=== PATIENT | female | born 1940 | race African-American/Black ===

== ENCOUNTER 2018-04-11 09:30 | Emergency (ER) | payer MEDICARE, MEDICAID ==
[~2018-04-11] VITALS: Ht 167.6 cm; Wt 70.0 kg
[~2018-04-11 09:30] MED LIST: HYDR-4135 PO; LABE200T28 PO; LIP40 PO; NIFE90TA34 PO
[2018-04-11] MEDS ORDERED: MAGNESIUM CITRATE 300ML SOLUTION PO ONE (10:45)
[2018-04-11] MEDS ORDERED: NA PHOS,M-B/NA PHOS,DI-BA ENEMA 118ML PR ONE (10:45)
[2018-04-11 10:50] LABS: EOSINOPHILS % 0.2 % (0.0-5.0); HEMATOCRIT. 37.5 % (36.0-48.0); LYMPHOCYTES % 13.5 % (20.0-50.0); MEAN CORPUSCULAR HEMOGLOBIN 24.6 pg (28.0-32.0); MEAN PLATELET VOLUME 7.4 fl (7.4-10.4); MONOCYTES % 5.2 % (2.0-8.0); NEUTROPHILS % 80.1 % (40.0-76.0); PLATELET 326 x1000/uL (130-400); RED BLOOD CELL COUNT 4.87 mill/uL (4.2-5.4); RED CELL DISTRIBUTION WIDTH 18.9 % (11.6-14.6)
[2018-04-11 10:54] LABS: CHLORIDE 105 mEq/L (98-107)
[2018-04-11 10:57] LABS: PROTHROMBIN TIME 10.5 sec (9.1-11.1)
[2018-04-11] MEDS ORDERED: LACTULOSE 20G/30ML UDC PO ONE (13:15)
[2018-04-12] MEDS ORDERED: CLONIDINE 0.2MG TABLET PO SCH (01:30)
[2018-04-12] MEDS ORDERED: CLONIDINE 0.2MG TABLET PO PRN (01:30)
[2018-04-12 10:42] VITALS: BP 202/76
== END 2018-04-12 10:52 | disposition left against medical advice (07) ==
LOC: ER 09:46 → EDBEDREQ 14:12 → EDBEDREQTM 14:12 → ER 04-12 10:52 → CANBEDREQ 04-12 16:05
DX: K56.41 Fecal impaction (principal); I12.0 Hypertensive chronic kidney disease with stage 5 chronic kidney disease or end stage renal disease; N18.6 End stage renal disease; Z99.2 Dependence on renal dialysis
CPT/HCPCS: 36415; 93005; 99284

== ENCOUNTER 2018-09-03 11:44 | Inpatient (IN) | payer MEDICARE, MEDICAID ==
[~2018-09-03] VITALS: Ht 170.2 cm; Wt 84.8 kg
[2018-09-03 14:05] LABS: BASOPHILS % 0.7 % (0.0-2.0); EOSINOPHILS % 1.2 % (0.0-5.0); HEMATOCRIT. 37.6 % (36.0-48.0); HEMOGLOBIN. 12.2 g/dL (12.0-16.0); LYMPHOCYTES % 33.3 % (20.0-50.0); MEAN CORPUSCULAR HEMOGLOBIN 25.8 pg (28.0-32.0); MEAN CORPUSCULAR VOLUME 79.8 fL (81.0-99.0); MEAN PLATELET VOLUME 7.9 fl (7.4-10.4); MONOCYTES % 6.6 % (2.0-8.0); NEUTROPHILS % 58.2 % (40.0-76.0); PLATELET 291 x1000/uL (130-400); RED BLOOD CELL COUNT 4.71 mill/uL (4.2-5.4); RED CELL DISTRIBUTION WIDTH 16.4 % (11.6-14.6)
[2018-09-03 14:10] LABS: CHLORIDE 96 mEq/L (98-107)
[2018-09-03 14:12] LABS: PROTHROMBIN TIME 10.2 sec (9.6-11.0)
[2018-09-03] MEDS ORDERED: ACETAMINOPHEN 325MG TABLET PO PRN (18:00)
[2018-09-03] MEDS ORDERED: ZOLPIDEM TARTRATE 5MG TABLET PO PRN (18:00)
[2018-09-03] MEDS ORDERED: ONDANSETRON HCL 4MG/2ML INJ IV PRN (18:00)
[2018-09-03 18:02] LABS: CLARITY URINE TURBID (CLEAR); COLOR URINE YELLOW (YELLOW); KETONES URINE TRACE (NEGATIVE); LEUKOCYTE ESTERASE URINE 3+ (NEGATIVE); NITRITE URINE NEGATIVE (NEGATIVE); OCCULT BLOOD URINE TRACE (NEGATIVE); PH URINE 8.5 (4.5-8.0); PROTEIN URINE 3+ (NEGATIVE); SPECIFIC GRAVITY URINE 1.017 (1.005-1.030)
[2018-09-03 20:00] VITALS: BP 139/76
[2018-09-03] MEDS ORDERED: ENOXAPARIN 30MG/0.3ML SYR SUBCUT SCH (21:00)
[2018-09-04] VITALS: BP 131/57
[2018-09-04 04:00] VITALS: BP 141/53
[2018-09-04 08:00] VITALS: BP 170/90
[2018-09-04 08:56] LABS: BASOPHILS % 0.8 % (0.0-2.0); EOSINOPHILS % 1.9 % (0.0-5.0); HEMATOCRIT. 33.9 % (36.0-48.0); HEMOGLOBIN. 10.9 g/dL (12.0-16.0); LYMPHOCYTES % 40.1 % (20.0-50.0); MEAN CORPUSCULAR HEMOGLOBIN 25.8 pg (28.0-32.0); MEAN CORPUSCULAR VOLUME 80.3 fL (81.0-99.0); MEAN PLATELET VOLUME 8.5 fl (7.4-10.4); MONOCYTES % 7.2 % (2.0-8.0); PLATELET 269 x1000/uL (130-400); RED BLOOD CELL COUNT 4.23 mill/uL (4.2-5.4); RED CELL DISTRIBUTION WIDTH 16.2 % (11.6-14.6)
[2018-09-04] MEDS ORDERED: FOLIC ACID/VITAMIN B COMP W-C TABLET PO SCH (09:00)
[2018-09-04 09:32] LABS: CHLORIDE 98 mEq/L (98-107)
[2018-09-04 09:43] LABS: PHOSPHORUS 5.8 mg/dL (2.5-4.9)
[2018-09-04] MEDS ORDERED: CEFTRIAXONE 1 G PREMIX 50 ML IV SCH (11:00)
[2018-09-04 12:00] VITALS: BP 139/75
[2018-09-04] MEDS ORDERED: MECLIZINE 25MG TABLET PO PRN (14:30)
[2018-09-04 19:34] VITALS: BP 210/96
== END 2018-09-04 20:50 | disposition home or self-care (01) | DRG 73 ==
LOC: ER 11:44 → 8WST 16:10 → EDBEDREQ 16:15 → ENRESERV 17:23
PROVIDERS: ADMIT Internal Medicine; ATTEND Internal Medicine
PROC: 5A1D70Z Performance of Urinary Filtration, Intermittent, Less than 6 Hours Per Day (ICD-10-PCS; principal; 2018-09-04)
DX: G90.8 Other disorders of autonomic nervous system (principal); N18.6 End stage renal disease; I12.0 Hypertensive chronic kidney disease with stage 5 chronic kidney disease or end stage renal disease; E87.1 Hypo-osmolality and hyponatremia; N39.0 Urinary tract infection, site not specified; B19.20 Unspecified viral hepatitis C without hepatic coma; B96.89 Other specified bacterial agents as the cause of diseases classified elsewhere; E21.3 Hyperparathyroidism, unspecified; G89.29 Other chronic pain; M54.5 Low back pain; D63.8 Anemia in other chronic diseases classified elsewhere; Z60.2 Problems related to living alone; E87.8 Other disorders of electrolyte and fluid balance, not elsewhere classified; J44.9 Chronic obstructive pulmonary disease, unspecified; Z79.899 Other long term (current) drug therapy; Z99.2 Dependence on renal dialysis; Z82.49 Family history of ischemic heart disease and other diseases of the circulatory system; Z87.891 Personal history of nicotine dependence; Z90.710 Acquired absence of both cervix and uterus
CPT/HCPCS: 36415; 71045; 84100; 84484; 87077; 87186; 93005; 96372; 99285; J0696; J1650

== ENCOUNTER 2018-11-10 18:50 | Inpatient (IN) | payer MEDICARE, MEDICAID ==
[~2018-11-10] VITALS: Ht 170.2 cm; Wt 63.5 kg
[~2018-11-10 18:50] MED LIST changes: -NIFE90TA34 PO
[2018-11-10 19:54] LABS: CHLORIDE 99 mEq/L (98-107)
[2018-11-10 19:55] LABS: BASOPHILS % 0.9 % (0.0-2.0); EOSINOPHILS % 2.4 % (0.0-5.0); HEMATOCRIT. 38.2 % (36.0-48.0); HEMOGLOBIN. 12.2 g/dL (12.0-16.0); LYMPHOCYTES % 35.6 % (20.0-50.0); MEAN CORPUSCULAR HEMOGLOBIN 26.1 pg (28.0-32.0); MEAN CORPUSCULAR VOLUME 81.4 fL (81.0-99.0); NEUTROPHILS % 52.1 % (40.0-76.0); PLATELET 233 x1000/uL (130-400); RED BLOOD CELL COUNT 4.69 mill/uL (4.2-5.4); RED CELL DISTRIBUTION WIDTH 15.8 % (11.6-14.6)
[2018-11-10 19:57] LABS: PROTHROMBIN TIME 10.6 sec (9.6-11.0)
[2018-11-10] MEDS ORDERED: POTASSIUM CHLORIDE 20MEQ TABLET SR PO ONE (21:00)
[2018-11-10 22:40] VITALS: BP 159/71
[2018-11-11] MEDS ORDERED: ACETAMINOPHEN 325MG TABLET PO PRN (00:15)
[2018-11-11] MEDS ORDERED: ONDANSETRON HCL 4MG/2ML INJ IV PRN (00:15)
[2018-11-11 01:48] LABS: CREATINE KINASE 55 IU/L (26-192)
[2018-11-11 01:50] LABS: CREATINE KINASE MB FRACTION < 1.0 ng/mL (0.5-3.6)
[2018-11-11 04:00] VITALS: BP_SYST 144; BP_SYST 151; BP_DIAS 60; BP_DIAS 73
[2018-11-11 08:00] VITALS: BP 139/79
[2018-11-11] MEDS: LABETALOL HCL 200MG TABLET PO SCH ×2 (08:58→21:00)
[2018-11-11] MEDS: ASPIRIN 81MG TABLET PO SCH (08:58)
[2018-11-11] MEDS ORDERED: HYDRALAZINE HCL 25MG TABLET PO SCH (09:00)
[2018-11-11 09:37] LABS: BASOPHILS % 0.5 % (0.0-2.0); HEMATOCRIT. 37.4 % (36.0-48.0); HEMOGLOBIN. 11.9 g/dL (12.0-16.0); LYMPHOCYTES % 35.6 % (20.0-50.0); MEAN CORPUSCULAR HEMOGLOBIN 25.7 pg (28.0-32.0); MEAN CORPUSCULAR VOLUME 81.2 fL (81.0-99.0); MEAN PLATELET VOLUME 8.3 fl (7.4-10.4); MONOCYTES % 7.6 % (2.0-8.0); NEUTROPHILS % 54.3 % (40.0-76.0); PLATELET 257 x1000/uL (130-400); RED BLOOD CELL COUNT 4.61 mill/uL (4.2-5.4); RED CELL DISTRIBUTION WIDTH 15.8 % (11.6-14.6)
[2018-11-11] MEDS: HEPARIN 5000 UNITS/ML VIAL SUBCUT SCH ×2 (09:41→21:44)
[2018-11-11 09:57] LABS: CHLORIDE 100 mEq/L (98-107)
[2018-11-11 10:07] LABS: LDL CHOLESTEROL 135 mg/dL (5-100)
[2018-11-11 10:08] LABS: CREATINE KINASE 53 IU/L (26-192)
[2018-11-11 10:09] LABS: HDL CHOLESTEROL 59 mg/dL (40-59)
[2018-11-11 10:10] LABS: CREATINE KINASE MB FRACTION < 1.0 ng/mL (0.5-3.6)
[2018-11-11] MEDS ORDERED: POTASSIUM CHLORIDE 20MEQ TABLET SR PO SCH (11:00)
[2018-11-11 12:00] VITALS: BP_SYST 147; BP_SYST 153; BP_DIAS 59; BP_DIAS 79
[2018-11-11 16:00] VITALS: BP 189/72
[2018-11-11 16:48] LABS: CREATINE KINASE 53 IU/L (26-192)
[2018-11-11 16:49] LABS: CREATINE KINASE MB FRACTION < 1.0 ng/mL (0.5-3.6)
[2018-11-11] MEDS: METHYLPREDNISOLONE SOD SUCC 40 MG/ML VIAL IV SCH ×2 (17:30→21:44)
[2018-11-11] MEDS: CLONIDINE 0.1MG TABLET PO PRN (17:32)
[2018-11-11] MEDS: PIPERACILLIN/TAZOBACTAM 2.25 G in DEXTROSE 5% WATER 50 ML IV SCH (18:42)
[2018-11-11] MEDS ORDERED: LORAZEPAM 2MG/ML CPJ IV PRN (19:00)
[2018-11-11] MEDS ORDERED: MECLIZINE 12.5MG TABLET PO PRN (19:00)
[2018-11-11] MEDS ORDERED: HYDROCODONE/ACETAMINOPHEN 5/325MG TABLET PO PRN (19:00)
[2018-11-11] MEDS ORDERED: DIPHENHYDRAMINE 50MG/ML VIAL IV PRN (19:00)
[2018-11-11 20:00] VITALS: BP_SYST 149; BP_SYST 159; BP_DIAS 71; BP_DIAS 85
[2018-11-11] MEDS: HYDRALAZINE HCL 25MG TABLET PO SCH (20:00)
[2018-11-11] MEDS: IPRATROPIUM/ALBUTEROL 0.5-3(2.5)MG/3ML NEB HHN SCH (20:58)
[2018-11-11] MEDS ORDERED: ATORVASTATIN CALCIUM 40MG TABLET PO SCH (21:00)
[2018-11-11] MEDS ORDERED: LACTULOSE 20G/30ML UDC PO PRN (21:00)
[2018-11-12] VITALS (7 sets, daily range): BP systolic 150–181; BP diastolic 63–96
[2018-11-12] MEDS: PIPERACILLIN/TAZOBACTAM 2.25 G in DEXTROSE 5% WATER 50 ML IV SCH ×2 (02:11→09:47)
[2018-11-12] MEDS: IPRATROPIUM/ALBUTEROL 0.5-3(2.5)MG/3ML NEB HHN SCH ×3 (02:15→14:36)
[2018-11-12] MEDS ORDERED: HEPARIN SODIUM 1,000 UNIT/1ML VIAL IV NR (03:15)
[2018-11-12] MEDS ORDERED: HEPARIN SODIUM 1,000 UNIT/1ML VIAL IV ONE (03:15)
[2018-11-12] MEDS: HYDRALAZINE HCL 25MG TABLET PO SCH ×2 (04:18→12:42)
[2018-11-12] MEDS: METHYLPREDNISOLONE SOD SUCC 40 MG/ML VIAL IV SCH ×2 (06:14→14:17)
[2018-11-12] MEDS: LABETALOL HCL 200MG TABLET PO SCH (09:47)
[2018-11-12] MEDS: ASPIRIN 81MG TABLET PO SCH (09:47)
[2018-11-12] MEDS: HEPARIN 5000 UNITS/ML VIAL SUBCUT SCH (09:48)
[2018-11-12 14:44] LABS: HEMATOCRIT. 37.9 % (36.0-48.0); HEMOGLOBIN. 12.2 g/dL (12.0-16.0); LYMPHOCYTES % 16.7 % (20.0-50.0); MEAN CORPUSCULAR HEMOGLOBIN 26.1 pg (28.0-32.0); MEAN PLATELET VOLUME 8.4 fl (7.4-10.4); MONOCYTES % 5.3 % (2.0-8.0); PLATELET 287 x1000/uL (130-400); RED BLOOD CELL COUNT 4.67 mill/uL (4.2-5.4); RED CELL DISTRIBUTION WIDTH 16.2 % (11.6-14.6)
[2018-11-12] MEDS: CLONIDINE 0.1MG TABLET PO PRN (16:20)
== END 2018-11-12 18:18 | disposition home or self-care (01) | DRG 291 ==
LOC: ER 18:50 → 7WST 21:33 → EDBEDREQ 21:35 → EDBEDREQTM 21:35 → ENRESERV 22:01 → EDBEDREQ 22:39
PROVIDERS: ADMIT Internal Medicine; ATTEND Internal Medicine
PROC: 5A1D70Z Performance of Urinary Filtration, Intermittent, Less than 6 Hours Per Day (ICD-10-PCS; principal; 2018-11-11)
DX: I13.2 Hypertensive heart and chronic kidney disease with heart failure and with stage 5 chronic kidney disease, or end stage renal disease (principal); I50.33 Acute on chronic diastolic (congestive) heart failure; N18.6 End stage renal disease; J44.1 Chronic obstructive pulmonary disease with (acute) exacerbation; E87.1 Hypo-osmolality and hyponatremia; J44.0 Chronic obstructive pulmonary disease with (acute) lower respiratory infection; J20.9 Acute bronchitis, unspecified; B19.20 Unspecified viral hepatitis C without hepatic coma; E78.5 Hyperlipidemia, unspecified; E87.6 Hypokalemia; R55 Syncope and collapse; Z79.899 Other long term (current) drug therapy; Z86.73 Personal history of transient ischemic attack (TIA), and cerebral infarction without residual deficits; Z90.710 Acquired absence of both cervix and uterus; Z99.2 Dependence on renal dialysis
CPT/HCPCS: 36415; 71045; 80048; 80061; 82550; 82553; 84443; 84484; 87804; 93005; 93306; 94640; 99285; J1644; J2543; J2920; J7060; J7620

== ENCOUNTER 2019-01-13 10:43 | Emergency (ER) | payer OTHER, MEDICAID ==
[~2019-01-13] VITALS: Ht 170.2 cm; Wt 73.0 kg
[2019-01-13] MEDS ORDERED: SODIUM CHLORIDE 0.9% 1,000 ML IV ONE (11:07)
[2019-01-13] MEDS ORDERED: KETOROLAC 30MG/ML VIAL IV STA (11:07)
[2019-01-13] MEDS ORDERED: METOCLOPRAMIDE HCL 10MG/2ML VIAL IV ONE (11:15)
[2019-01-13] MEDS ORDERED: ACETAMINOPHEN WITH CODEINE 300/30MG TABLET PO ONE (12:45)
[2019-01-13 15:00] VITALS: BP 153/86
== END 2019-01-13 15:08 | disposition home or self-care (01) ==
LOC: ER 10:43
DX: R51 Headache (principal); J44.9 Chronic obstructive pulmonary disease, unspecified; I10 Essential (primary) hypertension; N28.9 Disorder of kidney and ureter, unspecified; Z99.2 Dependence on renal dialysis; Z90.710 Acquired absence of both cervix and uterus; Z79.899 Other long term (current) drug therapy
CPT/HCPCS: 70450; 96374; 96375; 99284; J1885; J2765; J7030

== ENCOUNTER 2020-06-05 12:22 | Inpatient (IN) | payer OTHER, MEDICAID ==
[~2020-06-05] VITALS: Ht 160 cm; Wt 60.3 kg
[~2020-06-05 12:22] MED LIST changes: -LABE200T28 PO; +LABE200T9 PO
[2020-06-05] MEDS ORDERED: ONDANSETRON HCL 4MG/2ML INJ IV ONE (12:45)
[2020-06-05 13:03] LABS: BASOPHILS % 0.6 % (0.0-2.0); EOSINOPHILS % 1.5 % (0.0-5.0); HEMATOCRIT. 31.2 % (36.0-48.0); HEMOGLOBIN. 10.1 g/dL (12.0-16.0); LYMPHOCYTES % 27.4 % (20.0-50.0); MEAN CORPUSCULAR HEMOGLOBIN 24.8 pg (28.0-32.0); MEAN CORPUSCULAR VOLUME 76.9 fL (81.0-99.0); MEAN PLATELET VOLUME 8.4 fl (7.4-10.4); MONOCYTES % 8.9 % (2.0-8.0); NEUTROPHILS % 61.6 % (40.0-76.0); PLATELET 224 x1000/uL (130-400); RED BLOOD CELL COUNT 4.06 mill/uL (4.2-5.4); RED CELL DISTRIBUTION WIDTH 18.2 % (11.6-14.6)
[2020-06-05 13:11] LABS: CHLORIDE 102 mEq/L (98-107)
[2020-06-05 13:15] LABS: ETHANOL BLOOD < 10 mg/dL
[2020-06-05] MEDS ORDERED: TRAMADOL 50MG TABLET PO PRN (14:30)
[2020-06-05] MEDS ORDERED: ENOXAPARIN 40MG/0.4ML SYR SUBCUT SCH (14:30)
[2020-06-05] MEDS ORDERED: ACETAMINOPHEN 325MG TABLET PO PRN (14:30)
[2020-06-05] MEDS ORDERED: MAGNESIUM/ALUMINUM HYDROXIDE/SIMETHICONE 30ML UDC PO PRN (14:30)
[2020-06-05] MEDS ORDERED: IPRATROPIUM/ALBUTEROL 0.5-3(2.5)MG/3ML NEB NEB PRN (14:30)
[2020-06-05] MEDS ORDERED: NITROGLYCERIN 0.4MG TABLET SL SL PRN (14:30)
[2020-06-05] MEDS ORDERED: DOCUSATE SODIUM 100MG CAPSULE PO PRN (14:30)
[2020-06-05] MEDS ORDERED: GUAIFENESIN 200MG/10ML SUGAR FREE UDC PO PRN (14:30)
[2020-06-05 15:19] LABS: T4 FREE 1.21 ng/dL (0.76-1.46)
[2020-06-05] MEDS: ENOXAPARIN 30MG/0.3ML SYR SUBCUT SCH (15:25)
[2020-06-05] MEDS: CLONIDINE 0.1MG TABLET PO PRN (15:25)
[2020-06-05 15:37] LABS: FOLIC ACID (FOLATE) SERUM 4.6 ng/mL (>5.38)
[2020-06-05] MEDS: SEVELAMER CARBONATE 800 MG TABLET PO SCH (17:00)
[2020-06-05] MEDS ORDERED: ZOLPIDEM TARTRATE 5MG TABLET PO PRN (21:00)
[2020-06-05] MEDS: HYDRALAZINE HCL 50MG TABLET PO SCH (22:27)
[2020-06-05] MEDS: FAMOTIDINE 20MG TABLET PO SCH (22:28)
[2020-06-05] MEDS: ASCORBIC ACID 500 MG TABLET PO SCH (22:28)
[2020-06-05] MEDS: METOPROLOL TARTRATE 25MG TABLET PO SCH (22:28)
[2020-06-05 23:00] VITALS: BP 145/54
[2020-06-06] VITALS (7 sets, daily range): BP systolic 142–203; BP diastolic 60–98
[2020-06-06 00:08] LABS: CREATINE KINASE 46 IU/L (26-192)
[2020-06-06 00:10] LABS: CREATINE KINASE MB FRACTION < 1.0 ng/mL (0.5-3.6)
[2020-06-06] MEDS: HYDRALAZINE HCL 50MG TABLET PO SCH ×3 (05:35→21:31)
[2020-06-06 07:02] LABS: BASOPHILS % 0.5 % (0.0-2.0); EOSINOPHILS % 1.7 % (0.0-5.0); HEMATOCRIT. 29.8 % (36.0-48.0); HEMOGLOBIN. 9.7 g/dL (12.0-16.0); LYMPHOCYTES % 35.7 % (20.0-50.0); MEAN CORPUSCULAR HEMOGLOBIN 25.1 pg (28.0-32.0); MEAN CORPUSCULAR VOLUME 77.1 fL (81.0-99.0); MEAN PLATELET VOLUME 9.3 fl (7.4-10.4); MONOCYTES % 7.9 % (2.0-8.0); NEUTROPHILS % 54.2 % (40.0-76.0); PLATELET 221 x1000/uL (130-400); RED BLOOD CELL COUNT 3.86 mill/uL (4.2-5.4)
[2020-06-06 07:15] LABS: CHLORIDE 103 mEq/L (98-107)
[2020-06-06 07:36] LABS: CREATINE KINASE 42 IU/L (26-192); PHOSPHORUS 2.8 mg/dL (2.5-4.9)
[2020-06-06 07:40] LABS: CREATINE KINASE MB FRACTION < 1.0 ng/mL (0.5-3.6)
[2020-06-06] MEDS: SEVELAMER CARBONATE 800 MG TABLET PO SCH ×3 (09:08→18:23)
[2020-06-06] MEDS: ASPIRIN 325MG EC TABLET PO SCH (09:08)
[2020-06-06] MEDS: ASCORBIC ACID 500 MG TABLET PO SCH ×2 (09:08→21:30)
[2020-06-06] MEDS: CHOLECALCIFEROL (D3) 1000 UNIT TABLET PO SCH (09:08)
[2020-06-06] MEDS: METOPROLOL TARTRATE 25MG TABLET PO SCH ×2 (09:09→21:31)
[2020-06-06] MEDS: ZINC SULFATE 220 MG ( 50 ) CAPSULE PO SCH (09:09)
[2020-06-06] MEDS: ENOXAPARIN 30MG/0.3ML SYR SUBCUT SCH (15:50)
[2020-06-06] MEDS: CLONIDINE 0.1MG TABLET PO PRN (15:52)
[2020-06-06] MEDS: ONDANSETRON HCL 4MG/2ML INJ IV PRN (21:31)
[2020-06-06] MEDS: FAMOTIDINE 20MG TABLET PO SCH (21:31)
[2020-06-07] VITALS: BP 167/75
[2020-06-07 04:00] VITALS: BP 148/124
[2020-06-07] MEDS: HYDRALAZINE HCL 50MG TABLET PO SCH ×3 (05:52→21:00)
[2020-06-07 08:00] VITALS: BP 132/28
[2020-06-07] MEDS: METOPROLOL TARTRATE 25MG TABLET PO SCH ×3 (09:00→20:31)
[2020-06-07] MEDS: ASCORBIC ACID 500 MG TABLET PO SCH ×2 (09:14→20:31)
[2020-06-07] MEDS: ASPIRIN 325MG EC TABLET PO SCH (09:14)
[2020-06-07] MEDS: ACETAMINOPHEN 325MG TABLET PO PRN ×3 (09:15→20:31)
[2020-06-07] MEDS: SEVELAMER CARBONATE 800 MG TABLET PO SCH ×3 (09:15→17:28)
[2020-06-07] MEDS: CHOLECALCIFEROL (D3) 1000 UNIT TABLET PO SCH (09:52)
[2020-06-07] MEDS: ZINC SULFATE 220 MG ( 50 ) CAPSULE PO SCH (09:53)
[2020-06-07] MEDS: ONDANSETRON HCL 4MG/2ML INJ IV PRN (09:53)
[2020-06-07] MEDS ORDERED: VANCOMYCIN 1 G PREMIX 200 ML IV SCH (10:00)
[2020-06-07] MEDS: PIPERACILLIN/TAZOBACTAM 2.25 G in DEXTROSE 5% WATER 50 ML IV SCH ×3 (11:29→23:20)
[2020-06-07 12:00] VITALS: BP 157/44
[2020-06-07] MEDS: ENOXAPARIN 30MG/0.3ML SYR SUBCUT SCH (14:59)
[2020-06-07 16:00] VITALS: BP 147/53
[2020-06-07] MEDS: CLONIDINE 0.1MG TABLET PO PRN (17:27)
[2020-06-07 20:00] VITALS: BP 130/55
[2020-06-07] MEDS: FAMOTIDINE 20MG TABLET PO SCH (20:31)
[2020-06-08] VITALS: BP 135/69
[2020-06-08 04:00] VITALS: BP 130/69
[2020-06-08] MEDS: HYDRALAZINE HCL 50MG TABLET PO SCH ×3 (05:11→22:10)
[2020-06-08] MEDS: PIPERACILLIN/TAZOBACTAM 2.25 G in DEXTROSE 5% WATER 50 ML IV SCH ×3 (05:11→18:22)
[2020-06-08 06:23] LABS: PHOSPHORUS 2.7 mg/dL (2.5-4.9)
[2020-06-08 06:29] LABS: BASOPHILS % 0.2 % (0.0-2.0); HEMATOCRIT. 24.6 % (36.0-48.0); LYMPHOCYTES % 14.5 % (20.0-50.0); MEAN CORPUSCULAR VOLUME 76.5 fL (81.0-99.0); MEAN PLATELET VOLUME 9.7 fl (7.4-10.4); MONOCYTES % 6.3 % (2.0-8.0); PLATELET 200 x1000/uL (130-400); RED BLOOD CELL COUNT 3.22 mill/uL (4.2-5.4); RED CELL DISTRIBUTION WIDTH 18.2 % (11.6-14.6)
[2020-06-08 08:00] VITALS: BP 157/70
[2020-06-08] MEDS: SEVELAMER CARBONATE 800 MG TABLET PO SCH ×3 (09:40→18:21)
[2020-06-08] MEDS: METOPROLOL TARTRATE 25MG TABLET PO SCH ×2 (09:40→22:09)
[2020-06-08] MEDS: ASPIRIN 325MG EC TABLET PO SCH (09:40)
[2020-06-08] MEDS: ZINC SULFATE 220 MG ( 50 ) CAPSULE PO SCH (09:40)
[2020-06-08] MEDS: ASCORBIC ACID 500 MG TABLET PO SCH ×2 (09:41→22:10)
[2020-06-08] MEDS: CHOLECALCIFEROL (D3) 1000 UNIT TABLET PO SCH (09:41)
[2020-06-08 12:00] VITALS: BP 187/79
[2020-06-08] MEDS: ENOXAPARIN 30MG/0.3ML SYR SUBCUT SCH (14:14)
[2020-06-08 16:00] VITALS: BP 141/55
[2020-06-08] MEDS ORDERED: VANCOMYCIN 500 MG PREMIX 100 ML IV SCH (18:30)
[2020-06-08 20:00] VITALS: BP 203/73
[2020-06-08] MEDS ORDERED: EPOETIN ALFA-EPBX 10,000 UNIT/ML VIAL SUBCUT NR (21:00)
[2020-06-08] MEDS: FAMOTIDINE 20MG TABLET PO SCH (22:10)
[2020-06-09] VITALS: BP 202/67
[2020-06-09] MEDS: CLONIDINE 0.1MG TABLET PO PRN (00:20)
[2020-06-09] MEDS: PIPERACILLIN/TAZOBACTAM 2.25 G in DEXTROSE 5% WATER 50 ML IV SCH ×4 (01:16→21:11)
[2020-06-09 04:00] VITALS: BP 152/58
[2020-06-09] MEDS: HYDRALAZINE HCL 50MG TABLET PO SCH ×3 (06:36→21:12)
[2020-06-09 06:45] LABS: BASOPHILS % 0.4 % (0.0-2.0); EOSINOPHILS % 1.6 % (0.0-5.0); HEMATOCRIT. 23.9 % (36.0-48.0); LYMPHOCYTES % 23.7 % (20.0-50.0); MEAN CORPUSCULAR HEMOGLOBIN 25.4 pg (28.0-32.0); MEAN CORPUSCULAR VOLUME 76.1 fL (81.0-99.0); MEAN PLATELET VOLUME 9.1 fl (7.4-10.4); MONOCYTES % 6.7 % (2.0-8.0); NEUTROPHILS % 67.6 % (40.0-76.0); PLATELET 201 x1000/uL (130-400); RED BLOOD CELL COUNT 3.14 mill/uL (4.2-5.4); RED CELL DISTRIBUTION WIDTH 17.9 % (11.6-14.6)
[2020-06-09] MEDS: CHOLECALCIFEROL (D3) 1000 UNIT TABLET PO SCH (08:53)
[2020-06-09] MEDS: ASCORBIC ACID 500 MG TABLET PO SCH ×2 (08:53→21:11)
[2020-06-09] MEDS: SEVELAMER CARBONATE 800 MG TABLET PO SCH ×3 (08:53→17:05)
[2020-06-09] MEDS: METOPROLOL TARTRATE 25MG TABLET PO SCH ×2 (08:54→21:13)
[2020-06-09] MEDS: ZINC SULFATE 220 MG ( 50 ) CAPSULE PO SCH (08:54)
[2020-06-09 12:00] VITALS: BP 142/43
[2020-06-09 20:00] VITALS: BP 141/86
[2020-06-09] MEDS: FAMOTIDINE 20MG TABLET PO SCH (21:11)
[2020-06-10] VITALS: BP 145/61
[2020-06-10 04:00] VITALS: BP 155/87
[2020-06-10 05:56] LABS: BASOPHILS % 0.5 % (0.0-2.0); EOSINOPHILS % 2.2 % (0.0-5.0); HEMATOCRIT. 25.5 % (36.0-48.0); LYMPHOCYTES % 27.3 % (20.0-50.0); MEAN CORPUSCULAR HEMOGLOBIN 24.3 pg (28.0-32.0); MEAN PLATELET VOLUME 9.8 fl (7.4-10.4); MONOCYTES % 7.2 % (2.0-8.0); NEUTROPHILS % 62.8 % (40.0-76.0); PLATELET 213 x1000/uL (130-400); RED BLOOD CELL COUNT 3.31 mill/uL (4.2-5.4); RED CELL DISTRIBUTION WIDTH 17.8 % (11.6-14.6)
[2020-06-10] MEDS: PIPERACILLIN/TAZOBACTAM 2.25 G in DEXTROSE 5% WATER 50 ML IV SCH ×2 (06:28→14:19)
[2020-06-10] MEDS: HYDRALAZINE HCL 50MG TABLET PO SCH ×2 (06:29→14:20)
[2020-06-10 08:00] VITALS: BP 137/95
[2020-06-10] MEDS: METOPROLOL TARTRATE 25MG TABLET PO SCH ×2 (09:00→21:33)
[2020-06-10] MEDS: ASCORBIC ACID 500 MG TABLET PO SCH ×2 (09:08→21:32)
[2020-06-10] MEDS: SEVELAMER CARBONATE 800 MG TABLET PO SCH ×3 (09:08→17:16)
[2020-06-10] MEDS: ZINC SULFATE 220 MG ( 50 ) CAPSULE PO SCH (09:08)
[2020-06-10] MEDS: CHOLECALCIFEROL (D3) 1000 UNIT TABLET PO SCH (09:08)
[2020-06-10 12:51] VITALS: BP 201/83
[2020-06-10] MEDS ORDERED: IOHEXOL 350 MG/ML 200ML INFUS..BTL IV ONE (15:22)
[2020-06-10] MEDS: ACETAMINOPHEN 325MG TABLET PO PRN (18:27)
[2020-06-10 18:39] LABS: INR 1.1; PROTHROMBIN TIME 11.4 sec (9.6-11.0)
[2020-06-10 20:00] VITALS: BP 141/82
[2020-06-10] MEDS ORDERED: VANCOMYCIN 500 MG PREMIX 100 ML IV NR (21:00)
[2020-06-10] MEDS: HYDRALAZINE HCL 100MG TABLET PO SCH (21:33)
[2020-06-10] MEDS: FAMOTIDINE 20MG TABLET PO SCH (21:33)
[2020-06-10] MEDS: EPOETIN ALFA-EPBX 10,000 UNIT/ML VIAL SUBCUT SCH (21:35)
[2020-06-11] VITALS (8 sets, daily range): BP systolic 115–194; BP diastolic 68–89
[2020-06-11] MEDS: PIPERACILLIN/TAZOBACTAM 2.25 G in DEXTROSE 5% WATER 50 ML IV SCH ×4 (01:34→22:36)
[2020-06-11] MEDS: NITROGLYCERIN OINT 1GM/INCH UDPKT TD SCH ×4 (01:34→22:02)
[2020-06-11] MEDS: HYDRALAZINE HCL 100MG TABLET PO SCH ×3 (06:38→22:02)
[2020-06-11 07:24] LABS: BASOPHILS % 0.8 % (0.0-2.0); EOSINOPHILS % 2.5 % (0.0-5.0); HEMATOCRIT. 25.7 % (36.0-48.0); HEMOGLOBIN. 8.2 g/dL (12.0-16.0); LYMPHOCYTES % 29.7 % (20.0-50.0); MEAN CORPUSCULAR HEMOGLOBIN 24.3 pg (28.0-32.0); MEAN PLATELET VOLUME 9.8 fl (7.4-10.4); MONOCYTES % 6.7 % (2.0-8.0); NEUTROPHILS % 60.3 % (40.0-76.0); PLATELET 254 x1000/uL (130-400); RED BLOOD CELL COUNT 3.38 mill/uL (4.2-5.4); RED CELL DISTRIBUTION WIDTH 17.6 % (11.6-14.6)
[2020-06-11] MEDS ORDERED: HEPARIN SODIUM 1,000 UNIT/1ML VIAL IV ONE (07:27)
[2020-06-11] MEDS: SEVELAMER CARBONATE 800 MG TABLET PO SCH ×4 (07:40→17:40)
[2020-06-11] MEDS: METOPROLOL TARTRATE 25MG TABLET PO SCH ×3 (09:00→20:43)
[2020-06-11] MEDS: CHOLECALCIFEROL (D3) 1000 UNIT TABLET PO SCH ×2 (09:00→09:37)
[2020-06-11] MEDS: ZINC SULFATE 220 MG ( 50 ) CAPSULE PO SCH ×2 (09:00→09:37)
[2020-06-11] MEDS: ASCORBIC ACID 500 MG TABLET PO SCH ×3 (09:00→20:43)
[2020-06-11] MEDS: HYDRALAZINE 20MG/ML VIAL IV PRN ×2 (10:23→20:42)
[2020-06-11] MEDS: MORPHINE SULFATE 2 MG/ML CPJ (NOT FOR IM USE) IV PRN ×2 (10:32→22:03)
[2020-06-11] MEDS ORDERED: IOHEXOL-300 100 ML BOTTLE ONE (12:26)
[2020-06-11] MEDS ORDERED: LIDOCAINE HCL 1% 20ML VIAL (Pyxis) INJ ONE (12:26)
[2020-06-11] MEDS ORDERED: IODIXANOL 320MG/ML 100 ML BOTTLE IV ONE (12:58)
[2020-06-11] MEDS ORDERED: MIDAZOLAM HCL 2 MG/2 ML VIAL ONE (13:32)
[2020-06-11] MEDS ORDERED: FENTANYL CITRATE/PF 50MCG/ML 2ML VIAL ONE (13:32)
[2020-06-11] MEDS ORDERED: HYDRALAZINE 20MG/ML VIAL ONE (14:48)
[2020-06-11] MEDS ORDERED: PROTAMINE SULFATE 10MG/ML VIAL 5ML IV ONE (15:26)
[2020-06-11] MEDS: FAMOTIDINE 20MG TABLET PO SCH (20:43)
[2020-06-11] MEDS: CLONIDINE 0.1MG TABLET PO PRN (22:39)
[2020-06-12] VITALS (15 sets, daily range): BP systolic 110–229; BP diastolic 56–84
[2020-06-12] MEDS: HYDRALAZINE 20MG/ML VIAL IV PRN ×3 (04:09→20:31)
[2020-06-12] MEDS: HYDRALAZINE HCL 100MG TABLET PO SCH ×3 (05:55→22:00)
[2020-06-12] MEDS: PIPERACILLIN/TAZOBACTAM 2.25 G in DEXTROSE 5% WATER 50 ML IV SCH (05:55)
[2020-06-12] MEDS: NITROGLYCERIN OINT 1GM/INCH UDPKT TD SCH ×4 (05:55→22:00)
[2020-06-12] MEDS: ASCORBIC ACID 500 MG TABLET PO SCH ×2 (08:04→21:00)
[2020-06-12] MEDS: ZINC SULFATE 220 MG ( 50 ) CAPSULE PO SCH (08:04)
[2020-06-12] MEDS: SEVELAMER CARBONATE 800 MG TABLET PO SCH ×3 (08:04→18:28)
[2020-06-12] MEDS: CHOLECALCIFEROL (D3) 1000 UNIT TABLET PO SCH (08:04)
[2020-06-12] MEDS: CLONIDINE 0.1MG TABLET PO PRN ×2 (08:05→20:31)
[2020-06-12] MEDS: METOPROLOL TARTRATE 25MG TABLET PO SCH ×2 (08:05→20:31)
[2020-06-12 08:06] LABS: BASOPHILS % 0.6 % (0.0-2.0); LYMPHOCYTES % 20.7 % (20.0-50.0); MEAN CORPUSCULAR HEMOGLOBIN 24.7 pg (28.0-32.0); MEAN CORPUSCULAR VOLUME 77.1 fL (81.0-99.0); MEAN PLATELET VOLUME 9.4 fl (7.4-10.4); MONOCYTES % 6.7 % (2.0-8.0); PLATELET 239 x1000/uL (130-400); RED CELL DISTRIBUTION WIDTH 17.7 % (11.6-14.6)
[2020-06-12 08:12] LABS: HEMATOCRIT. 21.6 % (36.0-48.0); HEMOGLOBIN. 6.9 g/dL (12.0-16.0)
[2020-06-12] MEDS ORDERED: ENALAPRIL 2.5MG/2ML VIAL 2ML IV PRN (10:00)
[2020-06-12] MEDS ORDERED: HYDRALAZINE 20MG/ML VIAL IV NR (10:00)
[2020-06-12] MEDS ORDERED: GENTAMICIN SULF 40MG/ML 2ML VIAL ONE (11:18)
[2020-06-12] MEDS ORDERED: LIDOCAINE HCL 1% 20ML VIAL (Pyxis) INJ ONE (11:18)
[2020-06-12] MEDS ORDERED: BUPIVACAINE HCL/PF 0.5% (5MG/ML) 10ML ONE (11:19)
[2020-06-12] MEDS ORDERED: POLYMYXIN B SULFATE 500000 UNITS/VIAL ONE (11:20)
[2020-06-12] MEDS ORDERED: MIDAZOLAM HCL 2 MG/2 ML VIAL ONE (12:58)
[2020-06-12] MEDS ORDERED: HYDROMORPHONE HCL/PF 2MG/ML (OR) ONE (12:58)
[2020-06-12] MEDS ORDERED: GLYCOPYRROLATE 0.2 MG/ML 2ML VIAL ONE (13:01)
[2020-06-12] MEDS ORDERED: VANCOMYCIN HCL 1 GM/VIAL ONE (13:53)
[2020-06-12] MEDS ORDERED: LABETALOL 5MG/ML SYR 20 MG/4 ML SYRINGE IV PRN (14:45)
[2020-06-12] MEDS ORDERED: HYDROMORPHONE HCL/PF 2MG/ML CPJ IV PRN (14:45)
[2020-06-12] MEDS ORDERED: ONDANSETRON HCL 4MG/2ML INJ IV PRN (14:45)
[2020-06-12] MEDS ORDERED: MEPERIDINE HCL/PF 25MG/ML CPJ IV PRN (14:45)
[2020-06-12] MEDS: ENALAPRIL 1.25MG/ML VIAL 1ML IV PRN (18:29)
[2020-06-12 20:10] LABS: HEMOGLOBIN 8.7 g/dL (12.0-16.0)
[2020-06-12] MEDS: MORPHINE SULFATE 2 MG/ML CPJ (NOT FOR IM USE) IV PRN (20:31)
[2020-06-12] MEDS: FAMOTIDINE 20MG TABLET PO SCH (21:00)
[2020-06-13] VITALS (13 sets, daily range): BP systolic 113–197; BP diastolic 56–81
[2020-06-13] MEDS: EPOETIN ALFA-EPBX 10,000 UNIT/ML VIAL SUBCUT SCH (01:14)
[2020-06-13] MEDS: MORPHINE SULFATE 2 MG/ML CPJ (NOT FOR IM USE) IV PRN ×4 (01:16→23:53)
[2020-06-13] MEDS: NITROGLYCERIN OINT 1GM/INCH UDPKT TD SCH ×4 (03:20→22:17)
[2020-06-13] MEDS: ENALAPRIL 1.25MG/ML VIAL 1ML IV PRN ×2 (03:20→10:52)
[2020-06-13] MEDS: HYDRALAZINE HCL 100MG TABLET PO SCH ×3 (06:16→22:17)
[2020-06-13] MEDS: HYDRALAZINE 20MG/ML VIAL IV PRN (06:16)
[2020-06-13 08:20] LABS: BASOPHILS % 0.4 % (0.0-2.0); EOSINOPHILS % 0.9 % (0.0-5.0); HEMATOCRIT. 26.4 % (36.0-48.0); HEMOGLOBIN. 8.7 g/dL (12.0-16.0); MEAN CORPUSCULAR HEMOGLOBIN 25.5 pg (28.0-32.0); MEAN PLATELET VOLUME 9.6 fl (7.4-10.4); MONOCYTES % 8.1 % (2.0-8.0); NEUTROPHILS % 77.6 % (40.0-76.0); PLATELET 242 x1000/uL (130-400); RED BLOOD CELL COUNT 3.39 mill/uL (4.2-5.4); RED CELL DISTRIBUTION WIDTH 17.1 % (11.6-14.6)
[2020-06-13] MEDS: ASCORBIC ACID 500 MG TABLET PO SCH ×2 (08:50→21:13)
[2020-06-13] MEDS: CHOLECALCIFEROL (D3) 1000 UNIT TABLET PO SCH (08:50)
[2020-06-13] MEDS: SEVELAMER CARBONATE 800 MG TABLET PO SCH ×3 (08:50→16:43)
[2020-06-13] MEDS: ZINC SULFATE 220 MG ( 50 ) CAPSULE PO SCH (08:50)
[2020-06-13] MEDS: METOPROLOL TARTRATE 25MG TABLET PO SCH ×2 (08:50→21:13)
[2020-06-13] MEDS: AMLODIPINE 5MG TABLET PO SCH (11:57)
[2020-06-13] MEDS: CLONIDINE 0.1MG TABLET PO PRN (14:38)
[2020-06-13] MEDS: NITROGLYCERIN 0.2MG/HR PATCH TOP SCH (14:38)
[2020-06-13] MEDS: ONDANSETRON HCL 4MG/2ML INJ IV PRN (14:52)
[2020-06-13] MEDS: FAMOTIDINE 20MG TABLET PO SCH (21:13)
[2020-06-14] VITALS (13 sets, daily range): BP systolic 115–178; BP diastolic 41–78
[2020-06-14] MEDS: NITROGLYCERIN OINT 1GM/INCH UDPKT TD SCH ×4 (04:24→21:39)
[2020-06-14] MEDS: HYDRALAZINE HCL 100MG TABLET PO SCH ×3 (05:19→21:40)
[2020-06-14] MEDS: ZINC SULFATE 220 MG ( 50 ) CAPSULE PO SCH (08:27)
[2020-06-14] MEDS: SEVELAMER CARBONATE 800 MG TABLET PO SCH ×3 (08:27→18:13)
[2020-06-14] MEDS: CHOLECALCIFEROL (D3) 1000 UNIT TABLET PO SCH (08:28)
[2020-06-14] MEDS: ASCORBIC ACID 500 MG TABLET PO SCH ×2 (08:28→20:38)
[2020-06-14] MEDS: AMLODIPINE 5MG TABLET PO SCH (08:32)
[2020-06-14] MEDS: METOPROLOL TARTRATE 25MG TABLET PO SCH ×2 (08:32→20:40)
[2020-06-14] MEDS: MORPHINE SULFATE 2 MG/ML CPJ (NOT FOR IM USE) IV PRN ×2 (08:35→16:16)
[2020-06-14 09:30] LABS: BASOPHILS % 0.5 % (0.0-2.0); EOSINOPHILS % 1.6 % (0.0-5.0); HEMATOCRIT. 23.6 % (36.0-48.0); HEMOGLOBIN. 7.8 g/dL (12.0-16.0); LYMPHOCYTES % 22.5 % (20.0-50.0); MEAN CORPUSCULAR VOLUME 78.9 fL (81.0-99.0); MEAN PLATELET VOLUME 9.1 fl (7.4-10.4); MONOCYTES % 5.7 % (2.0-8.0); NEUTROPHILS % 69.7 % (40.0-76.0); PLATELET 313 x1000/uL (130-400); RED BLOOD CELL COUNT 2.99 mill/uL (4.2-5.4); RED CELL DISTRIBUTION WIDTH 17.1 % (11.6-14.6)
[2020-06-14] MEDS: NITROGLYCERIN 0.2MG/HR PATCH TOP SCH (09:42)
[2020-06-14] MEDS ORDERED: POTASSIUM CHLORIDE 20MEQ TABLET SR PO NR (11:30)
[2020-06-14 12:38] LABS: HEMATOCRIT 23.6 % (36.0-48.0); HEMOGLOBIN 7.7 g/dL (12.0-16.0)
[2020-06-14] MEDS ORDERED: AMLO10TA4 MT (15:27)
[2020-06-14] MEDS ORDERED: METO-539 MT (15:27)
[2020-06-14] MEDS ORDERED: HYDR-4001 MT (15:27)
[2020-06-14] MEDS ORDERED: HYDR100T26 MT (15:27)
[2020-06-14] MEDS ORDERED: VANCOMYCIN 750 MG PREMIX 150 ML IV NR (18:00)
[2020-06-14] MEDS: POVIDONE-IODINE 10% TOPICAL SOLN 240ML TOP SCH (18:13)
[2020-06-14] MEDS: FAMOTIDINE 20MG TABLET PO SCH (20:38)
[2020-06-14] MEDS: EPOETIN ALFA-EPBX 10,000 UNIT/ML VIAL SUBCUT SCH (20:40)
[2020-06-15] VITALS (20 sets, daily range): BP systolic 102–165; BP diastolic 33–82
[2020-06-15] MEDS: NITROGLYCERIN OINT 1GM/INCH UDPKT TD SCH ×4 (04:05→22:33)
[2020-06-15] MEDS: HYDRALAZINE HCL 100MG TABLET PO SCH ×3 (06:06→22:33)
[2020-06-15 06:38] LABS: BASOPHILS % 0.3 % (0.0-2.0); EOSINOPHILS % 1.6 % (0.0-5.0); HEMATOCRIT. 22.3 % (36.0-48.0); HEMOGLOBIN. 7.3 g/dL (12.0-16.0); MEAN CORPUSCULAR HEMOGLOBIN 25.5 pg (28.0-32.0); MEAN CORPUSCULAR VOLUME 78.4 fL (81.0-99.0); MONOCYTES % 5.7 % (2.0-8.0); NEUTROPHILS % 72.4 % (40.0-76.0); PLATELET 340 x1000/uL (130-400); RED BLOOD CELL COUNT 2.85 mill/uL (4.2-5.4); RED CELL DISTRIBUTION WIDTH 16.8 % (11.6-14.6)
[2020-06-15] MEDS: ZINC SULFATE 220 MG ( 50 ) CAPSULE PO SCH (09:43)
[2020-06-15] MEDS: CHOLECALCIFEROL (D3) 1000 UNIT TABLET PO SCH (09:43)
[2020-06-15] MEDS: AMLODIPINE 5MG TABLET PO SCH (09:43)
[2020-06-15] MEDS: ASCORBIC ACID 500 MG TABLET PO SCH ×2 (09:44→20:51)
[2020-06-15] MEDS: METOPROLOL TARTRATE 25MG TABLET PO SCH ×2 (09:44→20:52)
[2020-06-15] MEDS: SEVELAMER CARBONATE 800 MG TABLET PO SCH ×3 (09:44→18:29)
[2020-06-15] MEDS: POVIDONE-IODINE 10% TOPICAL SOLN 240ML TOP SCH (09:45)
[2020-06-15] MEDS: NITROGLYCERIN 0.2MG/HR PATCH TOP SCH (09:45)
[2020-06-15 19:03] LABS: INR 1.2; PROTHROMBIN TIME 12.4 sec (9.6-11.0)
[2020-06-15] MEDS: FAMOTIDINE 20MG TABLET PO SCH (20:52)
[2020-06-15 23:15] LABS: HEMATOCRIT 27.3 % (36.0-48.0); HEMOGLOBIN 8.9 g/dL (12.0-16.0)
[2020-06-16] VITALS (13 sets, daily range): BP systolic 113–162; BP diastolic 56–97
[2020-06-16] MEDS: NITROGLYCERIN OINT 1GM/INCH UDPKT TD SCH ×3 (04:17→18:23)
[2020-06-16] MEDS: HYDRALAZINE HCL 100MG TABLET PO SCH ×2 (05:27→12:58)
[2020-06-16 07:22] LABS: BASOPHILS % 0.3 % (0.0-2.0); EOSINOPHILS % 1.3 % (0.0-5.0); HEMATOCRIT. 28.7 % (36.0-48.0); HEMOGLOBIN. 9.1 g/dL (12.0-16.0); MEAN CORPUSCULAR HEMOGLOBIN 25.4 pg (28.0-32.0); MEAN CORPUSCULAR VOLUME 80.1 fL (81.0-99.0); MEAN PLATELET VOLUME 8.7 fl (7.4-10.4); MONOCYTES % 4.7 % (2.0-8.0); NEUTROPHILS % 79.7 % (40.0-76.0); PLATELET 373 x1000/uL (130-400); RED BLOOD CELL COUNT 3.58 mill/uL (4.2-5.4); RED CELL DISTRIBUTION WIDTH 17.1 % (11.6-14.6)
[2020-06-16] MEDS: ZINC SULFATE 220 MG ( 50 ) CAPSULE PO SCH (08:26)
[2020-06-16] MEDS: SEVELAMER CARBONATE 800 MG TABLET PO SCH ×3 (08:26→18:22)
[2020-06-16] MEDS: CHOLECALCIFEROL (D3) 1000 UNIT TABLET PO SCH (08:26)
[2020-06-16] MEDS: ASCORBIC ACID 500 MG TABLET PO SCH ×2 (08:27→20:08)
[2020-06-16] MEDS: NITROGLYCERIN 0.2MG/HR PATCH TOP SCH (08:28)
[2020-06-16] MEDS: METOPROLOL TARTRATE 25MG TABLET PO SCH ×2 (08:29→20:09)
[2020-06-16] MEDS: AMLODIPINE 5MG TABLET PO SCH (08:29)
[2020-06-16] MEDS: POVIDONE-IODINE 10% TOPICAL SOLN 240ML TOP SCH (08:57)
[2020-06-16] MEDS: ACETAMINOPHEN 325MG TABLET PO PRN ×2 (10:01→18:55)
[2020-06-16] MEDS: MORPHINE SULFATE 2 MG/ML CPJ (NOT FOR IM USE) IV PRN (10:13)
[2020-06-16] MEDS ORDERED: HYDROCODONE/ACETAMINOPHEN 10/325MG TABLET PO PRN (14:30)
[2020-06-16] MEDS: FAMOTIDINE 20MG TABLET PO SCH (20:08)
== END 2020-06-16 20:50 | disposition home health service (06) | DRG 853 ==
LOC: ER 12:22 → 8WST 14:23 → EDBEDREQTM 14:25 → EDBEDREQ 14:25 → SUPCPDRO 14:28 → ENRESERV 20:41 → 3WST 06-11 15:56
PROVIDERS: ADMIT Internal Medicine; ATTEND Internal Medicine
PROC: 5A1D70Z Performance of Urinary Filtration, Intermittent, Less than 6 Hours Per Day (ICD-10-PCS; 2020-06-07)
PROC: 5A1D70Z Performance of Urinary Filtration, Intermittent, Less than 6 Hours Per Day (ICD-10-PCS; 2020-06-10)
PROC: 04CL3ZZ Extirpation of Matter from Left Femoral Artery, Percutaneous Approach (ICD-10-PCS; principal; 2020-06-11)
PROC: 047L3DZ Dilation of Left Femoral Artery with Intraluminal Device, Percutaneous Approach (ICD-10-PCS; 2020-06-11)
PROC: 04CN3ZZ Extirpation of Matter from Left Popliteal Artery, Percutaneous Approach (ICD-10-PCS; 2020-06-11)
PROC: 047N3DZ Dilation of Left Popliteal Artery with Intraluminal Device, Percutaneous Approach (ICD-10-PCS; 2020-06-11)
PROC: 04HK33Z Insertion of Infusion Device into Right Femoral Artery, Percutaneous Approach (ICD-10-PCS; 2020-06-11)
PROC: 04HL33Z Insertion of Infusion Device into Left Femoral Artery, Percutaneous Approach (ICD-10-PCS; 2020-06-11)
PROC: 04HN33Z Insertion of Infusion Device into Left Popliteal Artery, Percutaneous Approach (ICD-10-PCS; 2020-06-11)
PROC: B41G1ZZ Fluoroscopy of Left Lower Extremity Arteries using Low Osmolar Contrast (ICD-10-PCS; 2020-06-11)
PROC: 0Y6N0Z0 Detachment at Left Foot, Complete, Open Approach (ICD-10-PCS; 2020-06-12)
PROC: 30233N1 Transfusion of Nonautologous Red Blood Cells into Peripheral Vein, Percutaneous Approach (ICD-10-PCS; 2020-06-12)
PROC: 5A1D70Z Performance of Urinary Filtration, Intermittent, Less than 6 Hours Per Day (ICD-10-PCS; 2020-06-12)
PROC: 5A1D80Z Performance of Urinary Filtration, Prolonged Intermittent, 6-18 hours Per Day (ICD-10-PCS; 2020-06-14)
PROC: 5A1D70Z Performance of Urinary Filtration, Intermittent, Less than 6 Hours Per Day (ICD-10-PCS; 2020-06-16)
DX: A41.9 Sepsis, unspecified organism (principal); N18.6 End stage renal disease; E11.52 Type 2 diabetes mellitus with diabetic peripheral angiopathy with gangrene; I12.0 Hypertensive chronic kidney disease with stage 5 chronic kidney disease or end stage renal disease; I70.263 Atherosclerosis of native arteries of extremities with gangrene, bilateral legs; M84.478A Pathological fracture, left toe(s), initial encounter for fracture; D63.8 Anemia in other chronic diseases classified elsewhere; E11.22 Type 2 diabetes mellitus with diabetic chronic kidney disease; E78.00 Pure hypercholesterolemia, unspecified; E78.5 Hyperlipidemia, unspecified; Z20.822 Contact with and (suspected) exposure to COVID-19; J44.9 Chronic obstructive pulmonary disease, unspecified; L85.3 Xerosis cutis; Z87.891 Personal history of nicotine dependence; Z90.710 Acquired absence of both cervix and uterus; Z86.73 Personal history of transient ischemic attack (TIA), and cerebral infarction without residual deficits; Z99.2 Dependence on renal dialysis; Z99.3 Dependence on wheelchair; Z79.899 Other long term (current) drug therapy; G90.9 Disorder of the autonomic nervous system, unspecified
CPT/HCPCS: 36415; 37227; 70551; 71045; 73630; 75710; 80048; 80053; 80061; 80202; 80320; 82550; 82553; 82607; 82746; 82962; 83036; 83540; 83550; 83605; 83735; 84100; 84145; 84439; 84443; 84484; 85014; 85018; 85025; 85049; 85347; 85384; 86850; 86900; 86920; 87070; 87075; 87426; 88305; 88311; 93005; 93306; 93880; 93923; 93970; 97162; 97164; 99291; C1725; C1760; C1769; C1876; C1885; C1887; C1893; C1894; J0360; J0885; J1170; J1580; J1644; J1650; J2250; J2270; J2405; J2543; J2720; J3010; J3370; J3490; J7040; J7060; P9016; Q9967; G0480